=== PATIENT | female | born 1980 | race Caucasian/White ===

== ENCOUNTER 2018-10-01 09:46 | Emergency (ER) | payer OTHER ==
[2018-10-01 09:50] VITALS: BP 117/70; PULSE 81; TEMP 98.2; BMI 28.3
[2018-10-01] MEDS ORDERED: KETOROLAC TROMETHAMINE 30 MG/1 ML VIAL IM ONE (10:49)
--- NOTE | 2018-10-01 10:54 | PDOC ---
History of Present Illness - General Chief Complaint: Pain, Acute Stated Complaint: NECK PAIN Time Seen by Provider: 10/01/18 10:28 History Source: Patient Exam Limitations: No Limitations - History of Present Illness Initial Comments: 10/01/18 10:49 37 year old female with no significant medical history and history of breast augmentation presents with pain in neck and upper arms since last night. Patient reports pain preventing her from standing up or moving. Denies injury or fall, states had the same prior and is having massages, and physical therapy. Diagnosed with stress causing pain and weakness in upper limbs. Occurred: reports: yesterday Severity: reports: mild Pain Location: reports: back, neck Method of Injury: Yes: unknown Modifying Factors: improves with: immobilization, pain medication Loss of Consciousness: no loss of consciousness Associated Symptoms (Fall): denies symptoms Past History - Travel Traveled outside of the country in the last 30 days: No - Past Medical History Allergies/Adverse Reactions: Allergies Allergy/AdvReac Type Severity Reaction Status Date / Time No Known Allergies Allergy Verified 10/01/18 09:50 Home Medications: Ambulatory Orders Sumatriptan Succinate 25 mg PO DAILY PRN 07/08/13 Alprazolam [Xanax] 1 mg PO ONCE PRN 10/01/18 Cyclobenzaprine HCl [Flexeril 10 mg] 10 mg PO HS PRN #6 tablet 10/01/18 COPD: No Psychiatric Problems: Yes (anxiety) - Suicide/Smoking/Psychosocial Hx Smoking Status: No Smoking History: Never smoked Number of Cigarettes Smoked Daily: 0 Information on smoking cessation initiated: No Hx Alcohol Use: No Drug/Substance Use Hx: No Trauma Specific PMHX - Complaint Specific PMHX Arthritis: No Back Injury: No Neck Injury: No Hx Sacro Iliac Joint Dysfunction: No Review of Systems - Review of Systems Able to Perform ROS?: Yes Is the patient limited Sudanese proficient: No Constitutional: No: Chills, Fever, Weight Stable HEENTM: No: Cataracts, Ear Discharge, Nose Pain, Nose Congestion, Tinnitus Respiratory: No: Cough, Orthopnea, Productive cough Cardiac (ROS): No: Chest Pain, Lightheadedness ABD/GI: No: Poor Appetite, Vomiting Musculoskeletal: Yes: Joint Swelling, Neck Pain Integumentary: No: Bruising, Erythema Neurological: No: Headache, Numbness, Paresthesia, Weakness Psychiatric: No: Stressors, Change in Appetite Endocrine: No: Excessive Sweating *Physical Exam - Vital Signs Last Vital Signs Temp Pulse Resp BP Pulse Ox 98.2 F 81 18 117/70 99 10/01/18 09:48 10/01/18 09:48 10/01/18 09:48 10/01/18 09:48 10/01/18 09:48 - Physical Exam General Appearance: Yes: Nourished, Appropriately Dressed HEENT: positive: EOMI, Pharynx Normal. negative: Pharyngeal Erythema, Tonsillar Exudate, Tonsillar Erythema Neck: positive: Supple. negative: Lymphadenopathy (R), Lymphadenopathy (L) Respiratory/Chest: positive: Lungs Clear, Labored Respiration Cardiovascular: positive: Regular Rhythm, Regular Rate Musculoskeletal: negative: CVA Tenderness, CVA Tenderness (R) Extremity: positive: Normal Capillary Refill Medical Decision Making - Medical Decision Making 10/01/18 10:53 37 year old female with no significant medical history and history of breast augmentation presents with pain in neck and upper arms since last night. Plan urine preg analgesia cervical spine film 10/01/18 19:35 no acute fracture, canal stenosis or subluxation found on xray *DC/Admit/Observation/Transfer Diagnosis at time of Disposition: Neck pain, musculoskeletal - Discharge Dispostion Disposition: HOME Condition at time of disposition: Good Decision to Admit order: No - Prescriptions Prescriptions: Cyclobenzaprine HCl [Flexeril 10 mg] 10 mg PO HS PRN #6 tablet PRN Reason: Back Pain - Referrals Referrals: Armin Perry MD [Staff Physician] - Call tomorrow (Call for an appointment as soon as possible) - Patient Instructions Additional Instructions: Please adjust computer at work Call neurologist for follow up appointment s Return for worsening symptoms Take flexeril at bedtime - Post Discharge Activity Forms/Work/School Notes: Back to Work
[2018-10-01] MEDS ORDERED: KETOROLAC TROMETHAMINE 30 MG/1 ML VIAL ONE (11:07)
== END 2018-10-01 12:20 | disposition home or self-care (01) ==
LOC: JER 09:46 → JERFT 09:46
PROC: 3E0233Z Introduction of Anti-inflammatory into Muscle, Percutaneous Approach (ICD-10-PCS; principal; 2018-10-01)
DX: M54.2 Cervicalgia (principal); Z98.82 Breast implant status
CPT/HCPCS: 72040-TC; 84703; 99281-25